=== PATIENT | male | born 1995 | race African-American/Black ===

== ENCOUNTER 2022-08-12 19:02 | Emergency (ER) | payer SELFPAY ==
[~2022-08-12] VITALS: Ht 185.4 cm; Wt 127.0 kg
--- NOTE | 2022-08-12 20:05 | NUR ---
After being triaged, patient was placed in the waiting room due to no beds available in the ER
--- NOTE | 2022-08-13 00:50 | NUR ---
Patient placed in room 5A at this time.
[2022-08-13] MEDS ORDERED: METOCLOPRAMIDE HCL 10 MG/2 ML VIAL IM ONE (01:45)
[2022-08-13] MEDS ORDERED: diphenhydrAMINE 50 MG/1 ML VIAL IM ONE (01:45)
[2022-08-13] MEDS ORDERED: METOCLOPRAMIDE HCL 10 MG/2 ML VIAL ONE (01:58)
[2022-08-13] MEDS ORDERED: diphenhydrAMINE 50 MG/1 ML VIAL ONE (01:59)
--- NOTE | 2022-08-13 01:59 | NUR ---
CT with no contrast in progress
[2022-08-13 02:37] VITALS: BP 118/80
--- NOTE | 2022-08-13 02:37 | NUR ---
Mary siddiqi in EDM - 08/13/22 at 0238 by JERAD Patient discharged to home in stable condition. Written and verbal after care instructions given. Patient verbalizes understanding of instructions. Stressed follow up or return to ER for worsening s/s.
[2022-08-13] MEDS ORDERED: METHOCARBAMOL 500 MG TABLET PO ONE (02:45)
[2022-08-13] MEDS ORDERED: METHOCARBAMOL 500 MG TABLET ONE (02:50)
[2022-08-13] MEDS ORDERED: HYDR-4209 PO ×2 (05:03→07:26)
[2022-08-13] MEDS ORDERED: ONDA4TAB11 PO ×2 (05:03→07:26)
== END 2022-08-13 05:20 | disposition home or self-care (01) ==
LOC: ER 19:02
DX: S06.0XAA Concussion with loss of consciousness status unknown, initial encounter (principal); R40.2142 Coma scale, eyes open, spontaneous, at arrival to emergency department; R40.2362 Coma scale, best motor response, obeys commands, at arrival to emergency department; R40.2252 Coma scale, best verbal response, oriented, at arrival to emergency department; V49.50XA Passenger injured in collision with unspecified motor vehicles in traffic accident, initial encounter; Y92.410 Unspecified street and highway as the place of occurrence of the external cause; S33.5XXA Sprain of ligaments of lumbar spine, initial encounter; S13.4XXA Sprain of ligaments of cervical spine, initial encounter; Z87.820 Personal history of traumatic brain injury; R06.02 Shortness of breath; I44.0 Atrioventricular block, first degree
CPT/HCPCS: 99284; 70450; 71045; 93005; 96372 ×2; J1200; J2765; A4663